=== PATIENT | female | born 1955 ===

== ENCOUNTER 2021-10-18 08:58 | Outpatient (CLI) | payer MEDICARE, OTHER ==
--- NOTE | 2021-10-18 10:17 | DEXA Report ---
PROCEDURE: Dexa Spine and/or Hip INDICATIONS: POST MENOPAUSAL TECHNIQUE: Dual energy x-ray absorptiometry (DXA) was performed on a [employer] System. Regions measur ed are the AP Spine, femoral neck, and if needed forearm. COMPARISON: None. FINDINGS: Lumbar Spine: Bone Mineral Density 0.968 g/cm/cm,T score -1.8, osteopenia Left total Hip: Bone Mineral Density 0.816 g/cm/cm,T score 1.5, osteopenia Left Femoral Neck: Bone Mineral Density 0.735 g/cm/cm, T score -2.2, osteopenia (T score greater or equal to -1.0: NORMAL) (T score from -1.1 to -2.4: OSTEOPENIA) (T score less than or equal to -2.5 to: OSTEOPOROSIS) Impression: Osteopenia Patients with diagnosis of osteoporosis or osteopenia should have regular bone mineral density assess ment. For those eligible for Medicare, routine testing is allowed once every 2 years. Testing frequ ency can be increased for patients who have rapidly progressing disease or for those who are receivin g medical therapy to restore bone mass. Reviewed by: Manuel Pollack on 10/18/2021 10:16 AM PDT Approved by: Manuel Pollack on 10/18/2021 10:16 AM PDT Station ID: [id number]
== END 2021-10-18 08:59 | disposition home or self-care (01) ==
LOC: DI 08:58
PROVIDERS: ATTEND Nurse Practitioner Family
DX: Z78.0 Asymptomatic menopausal state (principal); M85.89 Other specified disorders of bone density and structure, multiple sites